=== PATIENT | male | born 1995 | race Caucasian/White ===

== ENCOUNTER 2017-02-24 09:02 | Emergency (ER) | payer OTHER ==
[2017-02-24 09:14] VITALS: BP 130/75; PULSE 81; RESP 20; TEMP 97.9; O2SAT 95
[2017-02-24] MEDS ORDERED: IBUPROFEN 600 MG TAB PO ONE (09:24)
--- NOTE | 2017-02-24 09:25 | EDPHY ---
H & P Time Seen by Provider: 02/24/17 09:14 HPI/ROS: CHIEF COMPLAINT: Left ankle and foot injury HISTORY OF PRESENT ILLNESS: Tripped over a railing last night, presents with pain in the left ankle and foot worse laterally and over the dorsum of the foot worse with standing or walking. REVIEW OF SYSTEMS: No other injuries PAST MEDICAL HISTORY: Left knee scope by Dr. Jones 4 years ago Social history: Here with mom General Appearance: Alert and conversant, cooperative. Normal range of motion of the knee. No proximal tib-fib tenderness, compartments are soft. Lateral malleolus tenderness. Ankle joint is stable. Tender over the dorsum of the foot and laterally over the 5th metatarsal on the left side. Normal dorsalis pedis pulse and normal motor and sensory. Skin intact. Emergency Department course/MDM: Oral ibuprofen 600, foot and ankle x-ray on the left. X-rays discussed, orthopedic plants given. They are warned there could be occult injury not seen on xray, and should follow up with Dr. Jones their orthopedist this week if still symptomatic. Smoking Status: Never smoked Constitutional: Initial Vital Signs Temperature (C) 36.6 C 02/24/17 09:11 Heart Rate 81 02/24/17 09:11 Respiratory Rate 20 02/24/17 09:11 Blood Pressure 130/75 H 02/24/17 09:11 O2 Sat (%) 95 02/24/17 09:11 O2 Delivery Mode Room Air Allergies/Adverse Reactions: No Known Allergies Allergy (Verified 02/24/17 09:11) Home Medications: Medication Instructions Recorded NK [No Known Home Meds] 02/24/17 MDM/Departure - MDM Diagnostics: X-ray left foot and ankle personally interpreted is negative for fracture or dislocation. Imaging Results: Imaging Impressions Ankle X-Ray 02/24/17 09:21 Impression: Ankle sprain. No acute fracture. Foot X-Ray 02/24/17 09:21 Impression: Negative. No acute fracture. Medications Given: Discontinued Medications Ibuprofen (Motrin) 600 mg PO EDNOW ONE Stop: 02/24/17 09:25 Last Admin: 02/24/17 09:40 Dose: 600 mg - Depart Disposition: Home, Routine, Self-Care Clinical Impression: Sprain of left foot Qualifiers: Encounter type: initial encounter Qualified Code(s): S93.602A - Unspecified sprain of left foot, initial encounter Condition: Good Instructions: Foot Sprain (ED) Additional Instructions: Activity as tolerated. Orthopedic appliance as needed for pain. Please see orthopedic surgeon later this week if not improving. Referrals: Norberto Pinto MD [Primary Care Provider] - As per Instructions Bassam Jones MD [Medical Doctor] - 2-3 days, if not improved
== END 2017-02-24 10:31 | disposition home or self-care (01) ==
DX: S93.602A Unspecified sprain of left foot, initial encounter (principal); W18.49XA Other slipping, tripping and stumbling without falling, initial encounter
CPT/HCPCS: L4386

== ENCOUNTER 2018-12-02 13:12 | Emergency (ER) | payer OTHER ==
--- NOTE | 2018-12-02 15:09 | EDPHY ---
H & P Stated Complaint: Skiing injury/left foot Time Seen by Provider: 12/02/18 14:57 HPI/ROS: CHIEF COMPLAINT: Left foot pain post skiing injury HISTORY OF PRESENT ILLNESS: 23-year-old male arrives via private vehicle. He describes going off of a jump, landing hard on his left heel, felt immediate pain. Unable to bear weight. Ski down the mountain his opposing ski. No paresthesia. No back pain. No knee pain. No hip pain. No neck pain or head injury. REVIEW OF SYSTEMS: 10 systems reviewed and negative with the exception of the elements mentioned in the history of present illness PAST MEDICAL/SURGICAL HISTORY: no anticoagulant use, no relevant medical/ surgical history SOCIAL HISTORY: denies alcohol use at time of incident PHYSICAL EXAM 1) GENERAL: Well-developed, well-nourished, alert and oriented. Appears to be in no acute distress. Answering questions appropriately. 2) HEAD: Normocephalic, atraumatic 3) HEENT: Pupils equal, round, reactive to light bilaterally. 4) NECK: No cervical collar is on. Posterior cervical spine is nontender, no stepoff, no effusion. Full range of motion which does not elicit any midline cervical spine pain, no posterior midline tenderness, no step-off. 5) LUNGS: Clear to auscultation bilaterally, no wheezes, no rhonchi, no retractions. No obvious signs of trauma. No chest wall pain. No flaring, no grunting. Moving symmetrically. No crepitus. 6) HEART: [Regular rate and rhythm, 7) ABDOMEN: No guarding, no rebound, no focal tenderness, no peritoneal signs, no signs of trauma, no ecchymosis 8) MUSCULOSKELETAL: Left lower extremity: Left hip knee nontender. Ankle nontender. Tender to palpation left calcaneus. Soft compartments throughout left lower extremity including the foot. DP PT pulses present and brisk with normal color normal temperature. Brisk capillary refill. Otherwise, Moving all extremities, no focal areas of tenderness, no obvious trauma. 9) BACK: No midline vertebral tenderness, no fluctuance, no step-off, no obvious trauma, no visual or palpable abnormality. 10) SKIN: No laceration. No abrasion DIFFERENTIAL DIAGNOSIS: In no particular order including but not limited to fracture, sprain, strain, dislocation, compartment syndrome - Personal History Current Tetanus/Diphtheria Vaccine: Yes - Medical/Surgical History Hx Asthma: No Hx Chronic Respiratory Disease: No Hx Diabetes: No Hx Cardiac Disease: No Hx Renal Disease: No Hx Cirrhosis: No Hx Alcoholism: No Hx HIV/AIDS: No Hx Splenectomy or Spleen Trauma: No Other PMH: meniscus repair left knee - Social History Smoking Status: Never smoked Constitutional: Initial Vital Signs Temperature (C) 36.7 C 12/02/18 13:38 Heart Rate 94 12/02/18 13:38 Respiratory Rate 16 12/02/18 13:38 Blood Pressure 132/73 H 12/02/18 13:38 O2 Sat (%) 95 12/02/18 13:38 O2 Delivery Mode Room Air Allergies/Adverse Reactions: No Known Allergies Allergy (Verified 02/24/17 09:11) Home Medications: Medication Instructions Recorded oxyCODONE/APAP 5/325 [Percocet 1 tab PO Q6 #10 tab 12/02/18 5/325] Medical Decision Making - Diagnostics Imaging Results: Imaging Impressions Foot X-Ray 12/02/18 13:41 Impression: No acute osseous findings. Images reviewed myself ED Course/Re-evaluation: 3:06 p.m.: Patient is neurovascularly intact. He has soft compartments. He has brisk pulses. He is focally tender to palpation to the calcaneus with no definitive fracture on x-ray. He is unable to bear weight secondary to pain. Informed of the limitations of x-ray. He has previously seen Dr. Tae Li for orthopedic issues and would like to follow up with Dr. Tae Li. Given usual and customary orthopedic precautions instructions. Care of patient under supervision of secondary supervising physician Dr Simmons . Departure - Departure Disposition: Home, Routine, Self-Care Clinical Impression: Left calcaneus pain Skiing accident Qualifiers: Encounter type: initial encounter Qualified Code(s): V00.328A - Other snow-ski accident, initial encounter Condition: Good Instructions: Foot Sprain (ED) Additional Instructions: Return to the ER immediately if you experience discoloration, have worsening pain, numbness, tingling, or any other symptoms that concern you. If you received x-rays in the emergency department today, be advised, that ligamentous , tendon, muscular, and other non-bony injury cannot be fully ruled out. Try to keep your affected extremity elevated above the level of your chest, and keep cold packs on the affected area, for the next 48 hours. Referrals: Tae Li MD [Medical Doctor] - 2-3 days, call for appt. Prescriptions: oxyCODONE/APAP [Percocet ] 1 tab PO Q6 #10 tab
[2018-12-02 15:25] VITALS: BP 124/69
== END 2018-12-02 15:24 | disposition home or self-care (01) ==
DX: M79.672 Pain in left foot (principal)
CPT/HCPCS: L4386